=== PATIENT | male | born 1990 | race Caucasian/White ===

== ENCOUNTER 2023-07-08 13:44 | Emergency (ER) | payer OTHER ==
[~2023-07-08] VITALS: Ht 185.4 cm; Wt 89.4 kg
[2023-07-08 13:49] VITALS: BP 140/113; PULSE 119; RESP 20; TEMP 98; O2SAT 97
[2023-07-08 15:01] LABS: BASOPHILS # (AUTO) 0.1 K/uL (0.00-0.22); BASOPHILS % (AUTO) 0.8 % (0.0-2.0); EOSINOPHILS % (AUTO) 0.1 % (0.0-4.0); HEMATOCRIT 43.9 % (36-52); HEMOGLOBIN 15.8 g/dL (12.0-18.0); LYMPHOCYTES # (AUTO) 2.1 K/uL (2.0-11.5); LYMPHOCYTES % (AUTO) 29.6 % (20.5-51.1); MEAN CORPUSCULAR HEMOGLOBIN 30 pg (27-31); MEAN CORPUSCULAR HGB CONC 36 g/dL (33-37); MEAN CORPUSCULAR VOLUME 83.5 fL (80-94); MONOCYTES # (AUTO) 0.4 K/uL (0.8-1.0); MONOCYTES % (AUTO) 5.5 % (1.7-9.3); NEUTROPHILS # (AUTO) 4.5 K/uL (1.8-7.7); PLATELET COUNT (AUTO) 248 K/uL (140-450); RED BLOOD CELL COUNT(AUTO) 5.26 MIL/uL (4.20-6.10)
[2023-07-08 15:11] LABS: ANION GAP 18.9 (8-16); CALCIUM 9.2 mg/dL (8.5-10.1); CARBON DIOXIDE 24.6 mmol/L (21-32); CREATININE 0.7 mg/dL (0.6-1.3); POTASSIUM 3.5 mmol/L (3.5-5.1)
[2023-07-08] MEDS ORDERED: HALOPERIDOL IM 5 MG/ML VIAL ONE (15:14)
[2023-07-08] MEDS: MIDAZOLAM 5 MG/5 ML VIAL IV ONE (15:15)
[2023-07-08] MEDS: HALOPERIDOL IM 5 MG/ML VIAL IM ONE (15:17)
[2023-07-08 15:21] LABS: ALANINE AMINOTRANSFERASE 36 U/L (12-78); ALBUMIN 4.3 g/dL (3.4-5.0); ALCOHOL, BLOOD 344 mg/dL (<10); ALKALINE PHOSPHATASE 79 U/L (50-136); ASPARTATE AMINOTRANSFERASE 45 U/L (15-37); BILIRUBIN,DIRECT 0.1 mg/dL (0.0-0.3); LIPASE 33 U/L (16-77); TOTAL BILIRUBIN 0.5 mg/dL (0.0-1.0); TOTAL PROTEIN, SERUM 7.4 g/dL (6.4-8.2)
[2023-07-08 15:40] VITALS: TEMP 98
[2023-07-08 18:59] VITALS: BP 129/87; PULSE 119; RESP 20; O2SAT 96
== END 2023-07-08 19:25 | disposition home or self-care (01) ==
LOC: MED 13:44
DX: F10.129 Alcohol abuse with intoxication, unspecified (principal); R07.9 Chest pain, unspecified; R45.1 Restlessness and agitation; R41.0 Disorientation, unspecified; R00.0 Tachycardia, unspecified; I10 Essential (primary) hypertension; Y90.8 Blood alcohol level of 240 mg/100 ml or more
CPT/HCPCS: 36415; 80048; 80076; 83690; 84484; 85025; 93005; 96372; 96374; 99291; G0482; J1630; J2250

== ENCOUNTER 2023-07-12 01:46 | Emergency (ER) | payer OTHER ==
[~2023-07-12] VITALS: Ht 175.3 cm; Wt 68.0 kg
[2023-07-12 01:50] VITALS: BP 127/85; PULSE 140; RESP 16; TEMP 98.1; O2SAT 95
[2023-07-12] MEDS ORDERED: diphenhydrAMINE 50 MG/ML VIAL ONE (01:54)
[2023-07-12] MEDS ORDERED: OLANZapine 10 MG VIAL IM ONE (01:55)
[2023-07-12] MEDS ORDERED: WATER STERILE 10 ML MC ONE (01:57)
[2023-07-12 02:17] LABS: BASOPHILS # (AUTO) 0.1 K/uL (0.00-0.22); EOSINOPHILS # (AUTO) 0.1 K/uL (0-0.4); EOSINOPHILS % (AUTO) 0.8 % (0.0-4.0); HEMATOCRIT 41.7 % (36-52); HEMOGLOBIN 15.1 g/dL (12.0-18.0); LYMPHOCYTES # (AUTO) 2.3 K/uL (2.0-11.5); LYMPHOCYTES % (AUTO) 27.3 % (20.5-51.1); MEAN CORPUSCULAR HEMOGLOBIN 31 pg (27-31); MEAN CORPUSCULAR HGB CONC 36 g/dL (33-37); MEAN CORPUSCULAR VOLUME 84.7 fL (80-94); MONOCYTES # (AUTO) 0.5 K/uL (0.8-1.0); NEUTROPHILS # (AUTO) 5.5 K/uL (1.8-7.7); NEUTROPHILS % (AUTO) 64.9 % (42.2-75.2); PLATELET COUNT (AUTO) 195 K/uL (140-450); RED BLOOD CELL COUNT(AUTO) 4.92 MIL/uL (4.20-6.10); RED CELL DISTRIBUTION WIDTH 12.2 % (11.6-13.7); WHITE BLOOD COUNT (AUTO) 8.4 K/uL (4.8-10.8)
[2023-07-12] MEDS: OLANZapine 10 MG VIAL IM ONE (02:21)
[2023-07-12 02:23] LABS: APPEARANCE,URINE CLEAR (CLEAR); BILIRUBIN,URINE NEGATIVE (NEGATIVE); BLOOD, URINE NEGATIVE (NEGATIVE); COLOR,URINE YELLOW (YELLOW); LEUKOCYTE ESTERASE ,URINE NEGATIVE (NEGATIVE); NITRITE, URINE NEGATIVE (NEGATIVE); PROTEIN,URINE NEGATIVE (NEGATIVE); UGLUCOSE NEGATIVE (NEGATIVE); UROBILINOGEN,URINE 0.2 EU/dL (0.2 - 1)
[2023-07-12] MEDS: diphenhydrAMINE 50 MG/ML VIAL IVP ONE (02:25)
[2023-07-12] MEDS: LORazepam 2 MG/ML VIAL IVP ONE (02:26)
[2023-07-12 02:33] LABS: AMPHETAMINE, URINE NEGATIVE ng/ml (NEG <=1000); BARBITURATE, URINE POSITIVE ng/ml (NEG <=200); BENZODIAZEPINE, URINE POSITIVE ng/mL (NEG <=200)
[2023-07-12 02:34] LABS: CANNABINOID, URINE NEGATIVE ng/mL (NEG <=50); COCAINE, URINE NEGATIVE ng/mL (NEG <=300); OPIATE, URINE NEGATIVE ng/mL (NEG <=2000); PHENCYCLIDINE SCREEN,URINE NEGATIVE ng/mL (NEG <=25)
[2023-07-12 02:35] LABS: ANION GAP 15.2 (8-16); CALCIUM 9.6 mg/dL (8.5-10.1); CARBON DIOXIDE 28.2 mmol/L (21-32); CREATININE 0.8 mg/dL (0.6-1.3); POTASSIUM 3.4 mmol/L (3.5-5.1)
[2023-07-12 03:02] LABS: ALANINE AMINOTRANSFERASE 45 U/L (12-78); ALBUMIN 4.1 g/dL (3.4-5.0); ALCOHOL, BLOOD 239 mg/dL (<10); ALKALINE PHOSPHATASE 75 U/L (50-136); ASPARTATE AMINOTRANSFERASE 47 U/L (15-37); BILIRUBIN,DIRECT 0.1 mg/dL (0.0-0.3); TOTAL BILIRUBIN 0.3 mg/dL (0.0-1.0)
[2023-07-12 03:07] LABS: SALICYLATE < 2.8 mg/dL (2.8-20.0)
[2023-07-12 03:21] VITALS: O2SAT 94
[2023-07-12 05:52] VITALS: O2SAT 95
[2023-07-12 12:18] VITALS: BP 127/98; PULSE 8; RESP 18; TEMP 98; O2SAT 98
== END 2023-07-12 12:18 ==
LOC: MED 01:46
DX: F23 Brief psychotic disorder (principal); R45.851 Suicidal ideations; R41.82 Altered mental status, unspecified; F10.129 Alcohol abuse with intoxication, unspecified; F41.9 Anxiety disorder, unspecified; I10 Essential (primary) hypertension; Z79.899 Other long term (current) drug therapy; Y90.9 Presence of alcohol in blood, level not specified
CPT/HCPCS: 36415; 80048; 80076; 80305; 81003; 84484; 85025; 93005; 96372; 96374; 99291; G0480; G0482; J1200; J2060; J3490

== ENCOUNTER 2023-07-31 11:52 | Emergency (ER) | payer OTHER ==
[~2023-07-31] VITALS: Ht 182.9 cm; Wt 97.5 kg
[2023-07-31 11:52] VITALS: O2SAT 99
[2023-07-31 12:02] VITALS: BP 110/80; PULSE 95; RESP 18; TEMP 97.3; O2SAT 98
[2023-07-31 12:39] LABS: BASOPHILS # (AUTO) 0.1 K/uL (0.00-0.22); BASOPHILS % (AUTO) 1.1 % (0.0-2.0); EOSINOPHILS # (AUTO) 0.1 K/uL (0-0.4); EOSINOPHILS % (AUTO) 1.7 % (0.0-4.0); HEMATOCRIT 42.5 % (36-52); HEMOGLOBIN 14.6 g/dL (12.0-18.0); LYMPHOCYTES # (AUTO) 2.3 K/uL (2.0-11.5); LYMPHOCYTES % (AUTO) 28.5 % (20.5-51.1); MEAN CORPUSCULAR HEMOGLOBIN 31 pg (27-31); MEAN CORPUSCULAR HGB CONC 34 g/dL (33-37); MEAN CORPUSCULAR VOLUME 89.3 fL (80-94); MONOCYTES # (AUTO) 0.5 K/uL (0.8-1.0); MONOCYTES % (AUTO) 6.3 % (1.7-9.3); NEUTROPHILS # (AUTO) 4.9 K/uL (1.8-7.7); NEUTROPHILS % (AUTO) 62.4 % (42.2-75.2); PLATELET COUNT (AUTO) 265 K/uL (140-450); RED BLOOD CELL COUNT(AUTO) 4.76 MIL/uL (4.20-6.10); RED CELL DISTRIBUTION WIDTH 14.1 % (11.6-13.7); WHITE BLOOD COUNT (AUTO) 7.9 K/uL (4.8-10.8)
[2023-07-31] MEDS: NACL 0.9% 1,000 ML IV ONE ×2 (12:40→14:47)
[2023-07-31 12:53] LABS: ANION GAP 14.5 (8-16); CARBON DIOXIDE 24.2 mmol/L (21-32); CREATININE 0.9 mg/dL (0.6-1.3); POTASSIUM 3.7 mmol/L (3.5-5.1)
[2023-07-31 12:59] LABS: APPEARANCE,URINE CLEAR (CLEAR); BILIRUBIN,URINE NEGATIVE (NEGATIVE); BLOOD, URINE NEGATIVE (NEGATIVE); COLOR,URINE YELLOW (YELLOW); LEUKOCYTE ESTERASE ,URINE NEGATIVE (NEGATIVE); NITRITE, URINE NEGATIVE (NEGATIVE); PROTEIN,URINE NEGATIVE (NEGATIVE); UGLUCOSE NEGATIVE (NEGATIVE); UROBILINOGEN,URINE 0.2 EU/dL (0.2 - 1)
[2023-07-31 13:07] LABS: ALANINE AMINOTRANSFERASE 81 U/L (12-78); ALCOHOL, BLOOD 164 mg/dL (<10); ALKALINE PHOSPHATASE 68 U/L (50-136); ASPARTATE AMINOTRANSFERASE 35 U/L (15-37); BILIRUBIN,DIRECT 0.1 mg/dL (0.0-0.3); TOTAL BILIRUBIN 0.2 mg/dL (0.0-1.0); TOTAL PROTEIN, SERUM 6.9 g/dL (6.4-8.2)
[2023-07-31 13:13] LABS: ACETAMINOPHEN < 0.5 ug/ml (10-30); SALICYLATE < 2.8 mg/dL (2.8-20.0)
[2023-07-31 13:13] LABS: AMPHETAMINE, URINE NEGATIVE ng/ml (NEG <=1000); BARBITURATE, URINE NEGATIVE ng/ml (NEG <=200); BENZODIAZEPINE, URINE NEGATIVE ng/mL (NEG <=200); CANNABINOID, URINE NEGATIVE ng/mL (NEG <=50); COCAINE, URINE NEGATIVE ng/mL (NEG <=300); OPIATE, URINE NEGATIVE ng/mL (NEG <=2000); PHENCYCLIDINE SCREEN,URINE NEGATIVE ng/mL (NEG <=25)
[2023-07-31] MEDS: diphenhydrAMINE 50 MG/ML VIAL IVP ONE (14:49)
[2023-07-31] MEDS: LORazepam 2 MG/ML VIAL IVP ONE (14:55)
[2023-07-31 20:13] VITALS: O2SAT 94
[2023-08-01 00:17] VITALS: O2SAT 94
[2023-08-01 02:18] VITALS: O2SAT 94
[2023-08-01] MEDS: LORazepam 1 MG TAB PO ONE (02:34)
[2023-08-01 05:17] VITALS: O2SAT 94
[2023-08-01 09:18] VITALS: BP 122/75; PULSE 66; RESP 18; TEMP 97.2; O2SAT 98
== END 2023-08-01 09:18 ==
LOC: MED 11:52
DX: R45.851 Suicidal ideations (principal); Z20.822 Contact with and (suspected) exposure to COVID-19; T43.591A Poisoning by other antipsychotics and neuroleptics, accidental (unintentional), initial encounter; T43.021A Poisoning by tetracyclic antidepressants, accidental (unintentional), initial encounter; F32.A Depression, unspecified; Y92.89 Other specified places as the place of occurrence of the external cause
CPT/HCPCS: 36415; 80048; 80076; 80305; 81003; 84484; 85025; 87426; 93005; 96361; 96374; 96375; 99285; G0480; G0482; J1200; J2060; J7030; Q0163